=== PATIENT | male | born 1995 | race African-American/Black ===

== ENCOUNTER → 2021-06-24 | Outpatient (CLI) | payer OTHER | LOC: MHCPAIN 10:23 | DX: M47.816 Spondylosis without myelopathy or radiculopathy, lumbar region (principal); M53.3 Sacrococcygeal disorders, not elsewhere classified; M54.16 Radiculopathy, lumbar region | CPT/HCPCS: G0463 ==

== ENCOUNTER → 2021-07-07 | Outpatient (CLI) | payer OTHER | LOC: MHCPAIN 09:38 | DX: M47.816 Spondylosis without myelopathy or radiculopathy, lumbar region (principal); M54.50 Low back pain, unspecified; M54.16 Radiculopathy, lumbar region | CPT/HCPCS: J1100; Q9967 ==